=== PATIENT | female | born 1955 | race Caucasian/White ===

== ENCOUNTER 2019-09-28 02:02 | Inpatient (IN) | payer MEDICAID ==
[~2019-09-28] VITALS: Ht 162.6 cm; Wt 56.8 kg
[~2019-09-28 02:02] MED LIST: ASPI-1265 PO; ATOR80TA PO; CARV-50 PO; CITA20TA28 PO; CLOP75TA33 PO; FAMO-129 PO; HYDR-3965 PO; INSU100I8 SQ; INSU100V9 SQ; ISOS120T13 PO; LISI2.5T2 PO; NITR0.4T51 SL; NITR100C6 PO; ONDA4TAB12 PO; ONDA4TAB6 PO; PANT20TA3 PO; POLY17PO10 PO
[2019-09-28 03:06] LABS: BASOPHILS # (AUTO) 0.1 X10'3 (0-0.2); BASOPHILS % (AUTO) 0.6 % (0-1); EOSINOPHILS # (AUTO) 0.7 X10'3 (0-0.9); EOSINOPHILS % (AUTO) 6.1 % (0-6); HEMATOCRIT 38.1 % (35.0-45.0); HEMOGLOBIN 13.3 g/dl (12.0-16.0); LYMPHOCYTES # (AUTO) 3.4 X10'3 (1.1-4.8); LYMPHOCYTES % (AUTO) 31.5 % (21-51); MEAN CORPUSCULAR HEMOGLOBIN 32.2 PG (27.0-31.0); MEAN CORPUSCULAR HGB CONC 34.9 g/dL (33.0-36.5); MEAN CORPUSCULAR VOLUME 92.2 FL (78-98); MEAN PLATELET VOLUME 8.4 FL (7.4-10.4); MONOCYTES # (AUTO) 0.8 X10'3 (0-0.9); MONOCYTES % (AUTO) 7.7 % (2-12); NEUTROPHILS # (AUTO) 5.7 X10'3 (1.8-7.7); NEUTROPHILS % (AUTO) 54.1 % (42-75); PLATELET COUNT 204 X10'3 (140-440); RED BLOOD COUNT 4.14 X10'6 (4.20-5.60); RED CELL DISTRIBUTION WIDTH 13.4 % (11.5-14.5); WHITE BLOOD COUNT 10.6 X10'3 (4.5-11.0)
[2019-09-28 03:14] LABS: PARTIAL THROMBOPLASTIN TIME 24 SECONDS (22-32)
[2019-09-28 03:15] LABS: ALANINE AMINOTRANSFERASE 16 U/L (12-78); ALBUMIN 2.8 G/DL (3.4-5.0); ALBUMIN/GLOBULIN RATIO 1.1 (1.1-1.5); ALKALINE PHOSPHATASE 66 IU/L (46-116); ANION GAP 9 (8-16); ASPARTATE AMINO TRANSFERASE 13 U/L (10-37); BILIRUBIN,TOTAL 0.2 MG/DL (0.1-1.0); BLOOD UREA NITROGEN 41 MG/DL (7-18); BUN/CREATININE RATIO 31.5 (6.6-38.0); CALCIUM 8.4 MG/DL (8.5-10.1); CHLORIDE 108 MMOL/L (99-107); GLUCOSE 156 MG/DL (70-104); POTASSIUM 4.1 MMOL/L (3.5-5.1); SODIUM 142 MMOL/L (135-145); TOTAL CARBON DIOXIDE 24.6 MMOL/L (24-32); TOTAL PROTEIN 5.4 G/DL (6.4-8.2); eGFR 42 ML/MIN
[2019-09-28 03:23] LABS: MAGNESIUM 1.7 MG/DL (1.5-2.4); TROPONIN I < 0.04 NG/ML (0.0-0.05)
[2019-09-28] MEDS ORDERED: CLOP75TA15 PO (04:13)
[2019-09-28] MEDS ORDERED: ASPI81TA52 PO (04:13)
[2019-09-28] MEDS ORDERED: BUPR150T8 PO (04:13)
[2019-09-28] MEDS ORDERED: DOCU-148 PO (04:13)
[2019-09-28] MEDS ORDERED: CARV3.12 PO (04:13)
[2019-09-28] MEDS ORDERED: POLY119P2 PO (04:13)
[2019-09-28] MEDS ORDERED: ALB0.5UD IH (04:13)
[2019-09-28] MEDS ORDERED: LEVO500T2 PO (04:13)
[2019-09-28] MEDS ORDERED: ISOS30TA9 PO (04:13)
[2019-09-28] MEDS ORDERED: ESCI10TA PO (04:13)
[2019-09-28] MEDS ORDERED: FAMO-128 PO (04:13)
[2019-09-28] MEDS ORDERED: morphine 2 MG/ML inj. syringe IV ONE (04:25)
[2019-09-28] MEDS ORDERED: magnesium hydroxide 30ml (MOM) UD suspension PO PRN (04:30)
[2019-09-28] MEDS ORDERED: morphine 2 MG/ML inj. syringe IV PRN (04:30)
[2019-09-28] MEDS ORDERED: acetaminophen 325mg tablet PO PRN (04:30)
[2019-09-28] MEDS ORDERED: ondansetron/PF 4mg/2ml inj IV PRN (04:30)
[2019-09-28] MEDS ORDERED: mag hydrox/Alum hydrox/simeth 30ml oral suspension PO PRN (04:30)
[2019-09-28] MEDS ORDERED: glucagon, human recombinant 1mg kit SUBCUT PRN (04:35)
[2019-09-28] MEDS ORDERED: dextrose 50%-water 50ml dispensing syringe IV PRN ×2 (04:35)
[2019-09-28] MEDS ORDERED: nitroGLYCERIN 0.4mg SUBLingual tab SL PRN ×2 (04:35→09:55)
[2019-09-28] MEDS ORDERED: dextrose ORAL solution 15 GM/59 ML bottle PO PRN ×2 (04:35)
[2019-09-28] MEDS ORDERED: MESSAGE TO PHARMACY PO ONE (04:35)
[2019-09-28] MEDS ORDERED: insulin Lispro (HumaLOG) vial - multi-dose SQ SCH (04:35)
[2019-09-28] MEDS ORDERED: albuterol 2.5 MG/3 ML nebule NEB PRN (04:35)
[2019-09-28 04:49] LABS: HEMOGLOBIN A1C 9.7 % (4.5-6.2)
[2019-09-28 05:10] LABS: URINE AMPHETAMINE SCREEN POSITIVE (Neg); URINE BARBITUATE SCREEN NEGATIVE (Neg); URINE BENZODIAZEPINES SCREEN NEGATIVE (Neg); URINE CANNABINOID SCREEN NEGATIVE (Neg); URINE COCAINE SCREEN POSITIVE (Neg); URINE METHADONE SCREEN NEGATIVE (Neg); URINE OPIATE SCREEN POSITIVE (Neg); URINE PHENCYCLIDINE SCREEN NEGATIVE (Neg)
[2019-09-28 05:30] VITALS: BP 109/61
--- NOTE | 2019-09-28 05:30 | NUR ---
pt arrived to PCU unit from ER via wheelchair, pt is A&O x4, pt states she has 9/10 CP was given morphine down in the ER will assess pt to see if effective, pt is not in any respiratory distress at this time, will continue to monitor pt received report from Gail FLORES
[2019-09-28 06:00] VITALS: BP 104/62
--- NOTE | 2019-09-28 06:07 | NUR ---
Problems reprioritized. Patient report given, questions answered & plan of care reviewed with Rena FLORES.
--- NOTE | 2019-09-28 06:53 | NUR ---
Patient in room PCU 3012. I have received report from Graciela FLORES and had the opportunity to ask questions and assume patient care.
[2019-09-28] MEDS: polyethylene glycol 3350 17gm powd pack PO SCH (08:00)
[2019-09-28] MEDS ORDERED: carVEDilol 3.125mg tablet PO SCH (08:00)
[2019-09-28] MEDS: buPROPion SR 150mg tablet PO SCH (08:37)
[2019-09-28] MEDS: citalopram 20mg tablet PO SCH (08:37)
[2019-09-28] MEDS: famotidine 20mg tablet PO SCH ×2 (08:37→20:40)
[2019-09-28] MEDS: docusate sod 100mg capsule PO SCH (08:37)
[2019-09-28] MEDS: aspirin 81mg tab.chew PO SCH (08:37)
[2019-09-28] MEDS: heparin, porcine 5000 units/ml vial SQ SCH ×2 (08:38→20:40)
[2019-09-28] MEDS: isosorbide dinitrate 30mg tablet PO SCH (09:04)
--- NOTE | 2019-09-28 09:48 | NUR ---
PAGER ID: [phone] MESSAGE: [id number] Carmelina Devi c/o 10 chest pain c throbbing headache, lightheadedness, and blurring of vision. BP checked x3 & SBP consistently in 70s. Routine EKG done on onset of CP showed NSR. Giving 250cc bolus per protocol. Pls advise. Rena [id number]
[2019-09-28] MEDS ORDERED: aminophylline 250mg/10ml inj. IV PRN (09:55)
[2019-09-28] MEDS ORDERED: metoprolol tartrate 1mg/ml inj IV PRN (09:55)
[2019-09-28] MEDS ORDERED: regadenoson 0.4mg/5ml syringe IV ONE (09:55)
[2019-09-28] MEDS ORDERED: LORazepam 2 mg/ml vial IM ONE (10:00)
[2019-09-28] MEDS: K and/or MAG REPLACEMENT MC SCH ×2 (10:25→20:00)
[2019-09-28] MEDS ORDERED: magnesium 4gm in 100ml NS 100 ML IV PRN (10:25)
[2019-09-28] MEDS ORDERED: potassium Cl 20 mEq SR tablet PO PRN ×2 (10:25)
[2019-09-28] MEDS ORDERED: potassium CL 10mEq/100ml bag 100 ML IV PRN (10:25)
[2019-09-28] MEDS ORDERED: magnesium Cl slow-release 64mg tablet PO PRN (10:25)
[2019-09-28 11:00] VITALS: BP 68/34
--- NOTE | 2019-09-28 12:57 | NUR ---
DM Consult: A1C 9.7. Pt seen by RD for written/verbal DM ed w/ RD contact information provided. Pt reports forgets to check GLU and taking DM meds per Rx at home. RD encouraged routine Glu checks and taking DM meds per MD Rx. Pt also reports hx meats getting stuck in throat and has had prior esophageal dilation; currently NPO pending EKG today. RD recommended CLIENT PORTFOLIO MANAGER BSS prior to diet advancement. Addendum: 09/28/19 at [address] Amended: Links added.
--- NOTE | 2019-09-28 14:09 | NUR ---
PAGER ID: [phone] MESSAGE: [phone] Carmelina Devi scan won't be done til tomorrow. Per [facility], they are past the time range for dosing and pt. SBP is too low. Running 1L NS bolus. Rena [id number]
[2019-09-28 15:00] VITALS: BP 96/51
--- NOTE | 2019-09-28 16:14 | NUR ---
Paged ST re: need for eval. Pt. would like to eat diner prior to jennifer-scan tomorrow 09/28
--- NOTE | 2019-09-28 16:25 | NUR ---
PAGER ID: [phone] MESSAGE: [id number] Carmelina Devi Would like to eat some dinner prior to jennifer-scan tomorrow if possible. C/o of feeling shaky and nauseated. Blood sugar consistently in 80s.ST therapy paged, has not evaluated yet. Rena [id number]
--- NOTE | 2019-09-28 18:30 | NUR ---
Problems reprioritized. Patient report given, questions answered & plan of care reviewed with Eduin RN.
[2019-09-28 19:00] VITALS: BP 94/47
[2019-09-28] MEDS ORDERED: insulin glargine (Lantus) pen - multi-dose SQ SCH (21:00)
[2019-09-29] VITALS (12 sets, daily range): BP systolic 120–155; BP diastolic 56–76
[2019-09-29 05:53] LABS: BASOPHILS # (AUTO) 0.1 X10'3 (0-0.2); BASOPHILS % (AUTO) 1.2 % (0-1); EOSINOPHILS # (AUTO) 0.6 X10'3 (0-0.9); EOSINOPHILS % (AUTO) 8.5 % (0-6); HEMATOCRIT 39.9 % (35.0-45.0); HEMOGLOBIN 13.8 g/dl (12.0-16.0); LYMPHOCYTES # (AUTO) 2.7 X10'3 (1.1-4.8); LYMPHOCYTES % (AUTO) 40.2 % (21-51); MEAN CORPUSCULAR HGB CONC 34.6 g/dL (33.0-36.5); MEAN CORPUSCULAR VOLUME 92.6 FL (78-98); MEAN PLATELET VOLUME 8.7 FL (7.4-10.4); MONOCYTES # (AUTO) 0.4 X10'3 (0-0.9); MONOCYTES % (AUTO) 6.6 % (2-12); NEUTROPHILS # (AUTO) 2.9 X10'3 (1.8-7.7); NEUTROPHILS % (AUTO) 43.5 % (42-75); PLATELET COUNT 189 X10'3 (140-440); RED BLOOD COUNT 4.31 X10'6 (4.20-5.60); RED CELL DISTRIBUTION WIDTH 13.1 % (11.5-14.5); WHITE BLOOD COUNT 6.6 X10'3 (4.5-11.0)
--- NOTE | 2019-09-29 06:00 | NUR ---
Patient in room PCU 3012. I have received report from Eduin FLORES and had the opportunity to ask questions and assume patient care.
[2019-09-29 06:12] LABS: ALANINE AMINOTRANSFERASE 44 U/L (12-78); ALBUMIN 2.9 G/DL (3.4-5.0); ALKALINE PHOSPHATASE 91 IU/L (46-116); ANION GAP 6 (8-16); ASPARTATE AMINO TRANSFERASE 32 U/L (10-37); BILIRUBIN,TOTAL 0.3 MG/DL (0.1-1.0); BLOOD UREA NITROGEN 26 MG/DL (7-18); CALCIUM 8.4 MG/DL (8.5-10.1); CHLORIDE 111 MMOL/L (99-107); CHOL/HDL RATIO 3.2 (0.00-4.99); CHOLESTEROL 146 MG/DL (0-200); CREATININE 1.13 MG/DL (0.40-0.90); GLUCOSE 91 MG/DL (70-104); HDL CHOLESTEROL 46 MG/DL (35-60); LDL CHOLESTEROL 72 MG/DL (50-100); POTASSIUM 4.1 MMOL/L (3.5-5.1); SODIUM 144 MMOL/L (135-145); TOTAL CARBON DIOXIDE 27.2 MMOL/L (24-32); TOTAL PROTEIN 5.7 G/DL (6.4-8.2); TRIGLYCERIDES 135 MG/DL (20-135); eGFR 49 ML/MIN
--- NOTE | 2019-09-29 07:03 | NUR ---
Problems reprioritized. Patient report given, questions answered & plan of care reviewed with Rena FLORES
[2019-09-29] MEDS: aspirin 81mg tab.chew PO SCH (07:43)
[2019-09-29] MEDS: docusate sod 100mg capsule PO SCH (07:43)
[2019-09-29] MEDS: citalopram 20mg tablet PO SCH (07:44)
[2019-09-29] MEDS: buPROPion SR 150mg tablet PO SCH (07:44)
[2019-09-29] MEDS: famotidine 20mg tablet PO SCH (07:45)
[2019-09-29] MEDS: heparin, porcine 5000 units/ml vial SQ SCH (07:46)
[2019-09-29] MEDS: polyethylene glycol 3350 17gm powd pack PO SCH (08:00)
[2019-09-29] MEDS: K and/or MAG REPLACEMENT MC SCH (08:00)
--- NOTE | 2019-09-29 09:23 | NUR ---
DM consult: Pt already seen by TRAVIS for DM education, see below. DM Consult: A1C 9.7. Pt seen by TRAVIS for written/verbal DM ed w/ RD contact information provided. Pt reports forgets to check GLU and taking DM meds per Rx at home. RD encouraged routine Glu checks and taking DM meds per MD Rx. Pt also reports hx meats getting stuck in throat and has had prior esophageal dilation; currently NPO pending EKG today. TRAVIS recommended JACQUARD CARD LACER BSS prior to diet advancement. Addendum: 09/29/19 at [address] Amended: Links added.
[2019-09-29] MEDS ORDERED: pneumococcal 23-VAL P-sac vacc 25 mcg/0.5ml vial IMVAC ONE (10:00)
[2019-09-29] MEDS: isosorbide dinitrate 30mg tablet PO SCH (10:34)
--- NOTE | 2019-09-29 17:56 | NUR ---
Patient stable for discharge home today, all discharge instructions given to patient and questions answered. IV out and cannula intact. All home medications stored in pharmacy given to patient.
[2019-09-30] MEDS ORDERED: venlafaxine XR 75mg capsule (Q24H) PO SCH (08:00)
== END 2019-09-29 17:40 | disposition home or self-care (01) | DRG 198 ==
LOC: ER 02:02 → ED HOLD 04:28 → UNDOADMIN 04:45 → ED HOLD 04:45 → PCU 3S 05:30
PROVIDERS: ADMIT Internal Medicine; ATTEND Family Medicine
PROC: 4A02XM4 Measurement of Cardiac Total Activity, External Approach (ICD-10-PCS; principal; 2019-09-29)
PROC: 3E073KZ Introduction of Other Diagnostic Substance into Coronary Artery, Percutaneous Approach (ICD-10-PCS; 2019-09-29)
PROC: 3E0234Z Introduction of Serum, Toxoid and Vaccine into Muscle, Percutaneous Approach (ICD-10-PCS; 2019-09-29)
DX: R07.89 Other chest pain (principal); I25.10 Atherosclerotic heart disease of native coronary artery without angina pectoris; I11.0 Hypertensive heart disease with heart failure; I50.9 Heart failure, unspecified; E11.9 Type 2 diabetes mellitus without complications; F11.10 Opioid abuse, uncomplicated; F14.10 Cocaine abuse, uncomplicated; F15.10 Other stimulant abuse, uncomplicated; F17.200 Nicotine dependence, unspecified, uncomplicated; F32.9 Major depressive disorder, single episode, unspecified; F41.9 Anxiety disorder, unspecified; G89.4 Chronic pain syndrome; I25.2 Old myocardial infarction; Z82.0 Family history of epilepsy and other diseases of the nervous system; Z82.49 Family history of ischemic heart disease and other diseases of the circulatory system; Z82.5 Family history of asthma and other chronic lower respiratory diseases; Z83.3 Family history of diabetes mellitus; Z86.73 Personal history of transient ischemic attack (TIA), and cerebral infarction without residual deficits; Z88.0 Allergy status to penicillin; Z90.710 Acquired absence of both cervix and uterus; Z23 Encounter for immunization; Z88.5 Allergy status to narcotic agent; Z88.8 Allergy status to other drugs, medicaments and biological substances; Z79.899 Other long term (current) drug therapy; Z79.82 Long term (current) use of aspirin; Z79.4 Long term (current) use of insulin; Z71.51 Drug abuse counseling and surveillance of drug abuser
CPT/HCPCS: 36415; 78452; 80053; 80061; 80305; 82948; 83036; 83735; 83880; 84443; 84484; 85025; 85610; 85730; 87081; 90732; 93005; 93017; 93306; 94640; 94760; 96374; 99285; A9500; G0378; J1644; J1815; J2270; J2785

== ENCOUNTER 2021-03-27 11:32 | Emergency (ER) | payer MEDICAID ==
[~2021-03-27] VITALS: Ht 157.5 cm; Wt 45.9 kg
[~2021-03-27 11:32] MED LIST changes: +ALB0.5UD IH; -ATOR80TA PO; +BUPR150T8 PO; -CARV-50 PO; +CARV3.12 PO; -CITA20TA28 PO; +CLOP75TA15 PO; -CLOP75TA33 PO; +DOCU-148 PO; +ESCI10TA PO; +FAMO-128 PO; -FAMO-129 PO; -HYDR-3965 PO; -ISOS120T13 PO; +ISOS30TA9 PO; -LISI2.5T2 PO; -NITR100C6 PO; -ONDA4TAB6 PO; -PANT20TA3 PO; +POLY119P2 PO; -POLY17PO10 PO
[2021-03-27 11:49] VITALS: BP 106/69
== END 2021-03-27 15:09 | disposition home or self-care (01) ==
LOC: ER 11:32
DX: M79.605 Pain in left leg (principal); M79.604 Pain in right leg; I25.10 Atherosclerotic heart disease of native coronary artery without angina pectoris; I10 Essential (primary) hypertension; I25.2 Old myocardial infarction; E11.9 Type 2 diabetes mellitus without complications; G89.29 Other chronic pain; F41.9 Anxiety disorder, unspecified; F32.9 Major depressive disorder, single episode, unspecified; F15.90 Other stimulant use, unspecified, uncomplicated; Z86.73 Personal history of transient ischemic attack (TIA), and cerebral infarction without residual deficits; Z87.01 Personal history of pneumonia (recurrent); Z87.440 Personal history of urinary (tract) infections; Z90.49 Acquired absence of other specified parts of digestive tract; Z90.710 Acquired absence of both cervix and uterus; Z90.89 Acquired absence of other organs; Z98.890 Other specified postprocedural states; Z88.0 Allergy status to penicillin; Z88.6 Allergy status to analgesic agent; Z88.1 Allergy status to other antibiotic agents; Z88.5 Allergy status to narcotic agent; Z88.8 Allergy status to other drugs, medicaments and biological substances; Z79.82 Long term (current) use of aspirin; Z79.899 Other long term (current) drug therapy
CPT/HCPCS: 93926; 93971; 99285

== ENCOUNTER 2021-06-26 11:19 | Inpatient (IN) | payer MEDICAID ==
[2021-06-26] VITALS (12 sets, daily range): BP systolic 92–174; BP diastolic 56–106
[~2021-06-26] VITALS: Ht 154.9 cm; Wt 62.0 kg
[2021-06-26] MEDS ORDERED: normal saline 1000ML IV soln IVB ONE (11:30)
[2021-06-26] MEDS ORDERED: metoprolol tartrate 1mg/ml inj IV ONE (11:30)
[2021-06-26] MEDS ORDERED: ondansetron/PF 4mg/2ml inj IV ONE (11:30)
[2021-06-26] MEDS: morphine 4 MG/ML inj SYRINge IV PRN ×2 (11:57→12:43)
[2021-06-26 12:03] LABS: BASOPHILS # (AUTO) 0.1 X10'3 (0-0.2); BASOPHILS % (AUTO) 0.4 % (0-1); EOSINOPHILS % (AUTO) 0 % (0-6); HEMATOCRIT 42.1 % (35.0-45.0); HEMOGLOBIN 13.7 g/dl (12.0-16.0); LYMPHOCYTES # (AUTO) 0.9 X10'3 (1.1-4.8); LYMPHOCYTES % (AUTO) 5.5 % (21-51); MEAN CORPUSCULAR HEMOGLOBIN 26.6 PG (27.0-31.0); MEAN CORPUSCULAR HGB CONC 32.5 g/dL (33.0-36.5); MEAN CORPUSCULAR VOLUME 81.9 FL (78-98); MEAN PLATELET VOLUME 7.6 FL (7.4-10.4); MONOCYTES # (AUTO) 0.3 X10'3 (0-0.9); MONOCYTES % (AUTO) 1.8 % (2-12); NEUTROPHILS # (AUTO) 14.5 X10'3 (1.8-7.7); NEUTROPHILS % (AUTO) 92.3 % (42-75); PLATELET COUNT 370 X10'3 (140-440); RED BLOOD COUNT 5.14 X10'6 (4.20-5.60); RED CELL DISTRIBUTION WIDTH 15.7 % (11.5-14.5); WHITE BLOOD COUNT 15.8 X10'3 (4.5-11.0)
--- NOTE | 2021-06-26 12:20 | NUR ---
Pt was up to the commode. Urine clear yellow. Pt continues to c/o severe pain.
[2021-06-26 12:22] LABS: ALANINE AMINOTRANSFERASE 22 U/L (12-78); ALBUMIN 3.9 G/DL (3.4-5.0); ALBUMIN/GLOBULIN RATIO 0.9 (1.1-1.5); ALKALINE PHOSPHATASE 197 IU/L (46-116); ANION GAP 12 (8-16); ASPARTATE AMINO TRANSFERASE 21 U/L (10-37); BILIRUBIN,TOTAL 0.8 MG/DL (0.1-1.0); BLOOD UREA NITROGEN 14 MG/DL (7-18); BUN/CREATININE RATIO 16.7 (6.6-38.0); CALCIUM 9.1 MG/DL (8.5-10.1); CHLORIDE 99 MMOL/L (99-107); CREATININE 0.84 MG/DL (0.40-0.90); GLUCOSE 233 MG/DL (70-104); SODIUM 135 MMOL/L (135-145); TOTAL CARBON DIOXIDE 24.3 MMOL/L (24-32); TOTAL PROTEIN 8.1 G/DL (6.4-8.2); eGFR 68 ML/MIN
--- NOTE | 2021-06-26 12:30 | NUR ---
Pt is somulent but responds to speech immediately.
[2021-06-26] MEDS ORDERED: hydrALAZINE 20mg/ml inj. IV ONE (12:35)
[2021-06-26 12:38] LABS: CLARITY,URINE CLEAR (Clear); GLUCOSE, URINE 500 mg/dl (Neg); KETONES,URINE TRACE mg/dl (Neg); LEUKOCYTE ESTERASE ,URINE NEGATIVE (Neg); NITRITES, URINE NEGATIVE (Neg); OCCULT BLOOD,URINE NEGATIVE (Neg); PROTEIN,URINE NEGATIVE (Neg); UROBILINOGEN,URINE 0.2 E.U/dL (0.2-1.0)
[2021-06-26 12:44] LABS: POTASSIUM 4.1 MMOL/L (3.5-5.1)
[2021-06-26] MEDS ORDERED: VENL225T3 PO (12:44)
[2021-06-26] MEDS ORDERED: ATOR40TA72 PO (12:44)
[2021-06-26] MEDS ORDERED: GABA300C PO (12:44)
[2021-06-26] MEDS ORDERED: METF-438 PO (12:44)
[2021-06-26] MEDS ORDERED: RIZA10TA98 PO (12:44)
[2021-06-26] MEDS ORDERED: CARV3.123 PO (12:44)
[2021-06-26] MEDS ORDERED: PANT40TA54 PO (12:44)
[2021-06-26] MEDS ORDERED: LOSA100T57 PO (12:44)
[2021-06-26] MEDS ORDERED: BUPR300T86 PO (12:44)
[2021-06-26] MEDS ORDERED: DULA3PEN SQ (12:44)
[2021-06-26] MEDS ORDERED: LISI40TA13 PO (12:44)
[2021-06-26] MEDS ORDERED: FERR-106 PO (12:44)
[2021-06-26] MEDS ORDERED: SENN-263 PO (12:44)
[2021-06-26] MEDS ORDERED: MSC30T PO (12:44)
[2021-06-26] MEDS ORDERED: ESTR42.510 VG (12:44)
[2021-06-26] MEDS ORDERED: NITR4.9S4 IH (12:44)
[2021-06-26] MEDS ORDERED: DAPA10TA PO (12:44)
[2021-06-26] MEDS ORDERED: ALBU8.5H17 IH (12:44)
[2021-06-26] MEDS ORDERED: INSU100I39 SQ (12:44)
[2021-06-26] MEDS ORDERED: ARIP5TAB60 PO (12:44)
[2021-06-26] MEDS ORDERED: MIRT7.5T11 PO (12:44)
[2021-06-26] MEDS ORDERED: CLOP75TA34 PO (12:44)
[2021-06-26] MEDS ORDERED: METO-384 PO (12:44)
[2021-06-26] MEDS ORDERED: APIX5TAB3 PO (12:44)
[2021-06-26] MEDS ORDERED: METO10TA3 PO (12:44)
[2021-06-26] MEDS ORDERED: INSU100I31 SQ (12:44)
[2021-06-26] MEDS ORDERED: OXYC15TA PO (12:44)
[2021-06-26] MEDS ORDERED: RANO500T6 PO (12:44)
[2021-06-26] MEDS ORDERED: ISOS30TA84 PO (12:44)
[2021-06-26 12:52] LABS: UA COLLECTION TYPE VOIDED
[2021-06-26 12:53] LABS: COLOR,URINE STRAW (Yellow)
[2021-06-26] MEDS ORDERED: insulin Lispro (HumaLOG) vial - multi-dose SQ SCH ×2 (15:40→21:30)
[2021-06-26] MEDS ORDERED: potassium CL 10mEq/100ml bag 100 ML IV PRN (15:40)
[2021-06-26] MEDS ORDERED: SUMAtriptan 25 MG tablet PO PRN (15:40)
[2021-06-26] MEDS ORDERED: magnesium 4gm in 100ml NS 100 ML IV PRN (15:40)
[2021-06-26] MEDS ORDERED: nitroGLYCERIN 0.4mg SUBLingual tab SL PRN (15:40)
[2021-06-26] MEDS ORDERED: MESSAGE TO PHARMACY PO ONE (15:40)
[2021-06-26] MEDS ORDERED: dextrose 50%-water 50ml dispensing syringe IV PRN ×4 (15:40→21:30)
[2021-06-26] MEDS ORDERED: magnesium 2GM in 50ml NS 50 ML IV PRN (15:40)
[2021-06-26] MEDS ORDERED: magnesium Cl slow-release 64mg tablet PO PRN (15:40)
[2021-06-26] MEDS ORDERED: ondansetron/PF 4mg/2ml inj IV PRN ×2 (15:40→16:10)
[2021-06-26] MEDS ORDERED: potassium Cl 20 mEq SR tablet PO PRN ×2 (15:40)
[2021-06-26] MEDS ORDERED: morphine 2 MG/ML inj. syringe IV PRN ×2 (15:40→16:10)
[2021-06-26] MEDS ORDERED: glucagon, human recombinant 1mg kit SUBCUT PRN ×2 (15:40→21:30)
[2021-06-26] MEDS ORDERED: dextrose ORAL solution 15 GM/59 ML bottle PO PRN ×4 (15:40→21:30)
[2021-06-26] MEDS ORDERED: albuterol 2.5 MG/3 ML nebule NEB PRN (15:40)
[2021-06-26] MEDS ORDERED: magnesium hydroxide 30ml (MOM) UD suspension PO PRN (15:40)
[2021-06-26] MEDS ORDERED: acetaminophen 325mg tablet PO PRN ×2 (15:40)
[2021-06-26] MEDS ORDERED: diphenhydrAMINE 25mg capsule PO PRN (15:40)
[2021-06-26] MEDS ORDERED: mag hydrox/Alum hydrox/simeth 30ml oral suspension PO PRN (15:40)
[2021-06-26] MEDS ORDERED: acetaminophen 650mg rectal suppository RC PRN (15:40)
[2021-06-26] MEDS ORDERED: bisacodyl 10mg suppository rectal RC PRN (15:40)
[2021-06-26] MEDS ORDERED: ciprofloxacin lact 400MG/200ML 200 ML IV SCH (15:45)
[2021-06-26] MEDS ORDERED: metroNIDAZOLE-Flagyl 500mg/NS 100 ML IV SCH (16:00)
[2021-06-26 16:04] LABS: HEMOGLOBIN A1C 6.5 % (4.5-6.2)
[2021-06-26] MEDS ORDERED: enalaprilat dihydrate 2.5mg/2ml vial IV PRN (16:10)
[2021-06-26] MEDS ORDERED: morphine 4 MG/ML inj SYRINge IV PRN (16:10)
[2021-06-26] MEDS ORDERED: ringers solution, lacted 1,000 ML IV SCH (16:10)
[2021-06-26] MEDS ORDERED: hydrALAZINE 20mg/ml inj. IV PRN (16:10)
[2021-06-26] MEDS ORDERED: fentaNYL/PF 50MCG/1 ML 2ML syringe IV PRN ×2 (16:10)
[2021-06-26] MEDS: normal saline 1000ml 1,000 ML IV SCH (16:20)
[2021-06-26] MEDS ORDERED: BUPIVAcaine 0.5% inj/PF 30 ML ONE (16:48)
[2021-06-26] MEDS ORDERED: LIDOcaine 1% 30ml preserv. free vial ONE (16:48)
[2021-06-26] MEDS ORDERED: fentaNYL/PF 50MCG/1 ML 2ML syringe ONE (17:04)
[2021-06-26] MEDS ORDERED: midazolam 1 mg/ML 2ml injection ONE (17:04)
[2021-06-26] MEDS ORDERED: etomidate 2mg/ml inj. ONE (17:06)
[2021-06-26] MEDS ORDERED: glycopyrrolate 0.2mg/ml inj ONE (17:06)
[2021-06-26] MEDS ORDERED: rocuronium 10mg/ml inj IV ONE (17:06)
[2021-06-26] MEDS ORDERED: dexamethasone sod phosphate 4mg/ml inj. ONE (17:06)
[2021-06-26] MEDS ORDERED: neostigmine methylsulfate 1 MG/ML 10ml vial ONE (17:06)
[2021-06-26] MEDS ORDERED: ondansetron/PF 4mg/2ml inj ONE (17:06)
[2021-06-26] MEDS ORDERED: sevoflurane 250ml liquid IH ONE (17:20)
[2021-06-26] MEDS ORDERED: albumin (Human) 5% 250ml 250 ML IV ONE (17:44)
[2021-06-26] MEDS ORDERED: ceFOXitin 1000 MG inj ONE (17:47)
[2021-06-26] MEDS ORDERED: BUPIVAcaine 0.5% inj/PF 30 ml vial IJ ONE (17:53)
[2021-06-26] MEDS ORDERED: labetalol 20mg/4ml (5mg/ml) syringe IV ONE (17:58)
--- NOTE | 2021-06-26 18:50 | NUR ---
Received from OR via , accompanied by Anesthesiologist DR GUTIÉRREZ and report given by Anesthesiolgist. PT SLEEPING, WILL AROUSE SLIGHTLY TO VOICE, SKIN WARM AND PINK MOVING EXT X 4, PEDAL PULSES +3, 3 LAP SITES ON ABD CLOSED WITH GLUE, CD, RIGHT AC 20G WITH LR 100ML/HR, 22G RIGHT WRIST SL, SCDS, ACCUCHECK ON ADMIT 198, NO ORDERS FROM DR GUTIÉRREZ.
[2021-06-26] MEDS: morphine 2 MG/ML inj. syringe IV PRN ×2 (19:04→19:26)
[2021-06-26] MEDS ORDERED: HYDROcodone/acetaminophen 5mg/325mg tablet PO PRN (19:30)
--- NOTE | 2021-06-26 19:40 | NUR ---
Report called to receiving nurse. Transferred via BED Belongings . Special Issues communicated to receiving nurse. PT AWAKE AND ALERT, MOVING EXT X 4, SKIN WARM AND PINK, VSS, PAIN 2/10, PIV PATENT, SCD'S, 3 LAP SITES CD, GHADA ICE WATER, PT MEETS DISCHARGE CRITERIA.
[2021-06-26] MEDS ORDERED: apixaban 5mg tablet PO SCH (20:00)
[2021-06-26] MEDS: K and/or MAG REPLACEMENT MC SCH (20:00)
--- NOTE | 2021-06-26 20:00 | NUR ---
Received pt from OR very drowsy but arousal to stimuli. vital stable on monitor. Telemetry monitoring in progress. pt is on oxygen; saturating well
[2021-06-26] MEDS: HYDROcodone/acetaminophen 10/325mg tab PO PRN (20:33)
[2021-06-26] MEDS: docusate sod 100mg capsule PO SCH (20:34)
[2021-06-26] MEDS: acetaminophen 325mg tablet PO SCH (20:34)
[2021-06-26] MEDS: gabapentin 300mg capsule PO SCH (20:34)
[2021-06-26] MEDS: atorvastatin 20mg tablet PO SCH (20:35)
[2021-06-26] MEDS: carVEDilol 3.125mg tablet PO SCH (20:35)
[2021-06-26] MEDS: sennosides 8.6mg tablet PO SCH (20:35)
[2021-06-26] MEDS: venlafaxine XR 75mg capsule (Q24H) PO SCH (20:35)
[2021-06-26] MEDS: ranolazine 500mg SR tablet (Q12H) PO SCH (20:36)
[2021-06-26] MEDS: heparin, porcine 5000 units/ml vial SQ SCH (20:44)
[2021-06-26] MEDS: insulin glargine (Lantus) pen - multi-dose SQ SCH (21:00)
[2021-06-26] MEDS ORDERED: insulin glargine (Lantus) pen - multi-dose SQ SCH (21:00)
[2021-06-27] VITALS (11 sets, daily range): BP systolic 80–154; BP diastolic 42–62
[2021-06-27] MEDS: HYDROcodone/acetaminophen 10/325mg tab PO PRN ×2 (00:32→20:13)
[2021-06-27] MEDS: ketorolac trometh. 30mg/ml inj. IV SCH ×2 (00:33→09:16)
[2021-06-27] MEDS: normal saline 1000ml 1,000 ML IV SCH ×3 (00:35→21:55)
[2021-06-27] MEDS: acetaminophen 325mg tablet PO SCH ×3 (04:17→13:48)
--- NOTE | 2021-06-27 05:23 | NUR ---
pt has not voided, Lower abdominal distention noted and firm on palpation; bladder scanning done, Greater than 1400 ML of urine reported on bladder scanner. straight cath done 1300 ML of urine removed.
[2021-06-27 07:46] LABS: BASOPHILS % (AUTO) 0 % (0-1); EOSINOPHILS % (AUTO) 0 % (0-6); HEMATOCRIT 34.1 % (35.0-45.0); LYMPHOCYTES # (AUTO) 1.2 X10'3 (1.1-4.8); MEAN CORPUSCULAR HEMOGLOBIN 26.5 PG (27.0-31.0); MEAN CORPUSCULAR HGB CONC 32.1 g/dL (33.0-36.5); MEAN CORPUSCULAR VOLUME 82.5 FL (78-98); MEAN PLATELET VOLUME 7.9 FL (7.4-10.4); MONOCYTES % (AUTO) 8.5 % (2-12); NEUTROPHILS % (AUTO) 81.5 % (42-75); PLATELET COUNT 262 X10'3 (140-440); RED BLOOD COUNT 4.14 X10'6 (4.20-5.60); RED CELL DISTRIBUTION WIDTH 15.6 % (11.5-14.5); WHITE BLOOD COUNT 12.2 X10'3 (4.5-11.0)
[2021-06-27] MEDS: isosorbide mononitrate 30mg tab.SR.24H PO SCH (08:00)
[2021-06-27] MEDS ORDERED: mirtazapine 15mg tablet PO SCH (08:00)
[2021-06-27] MEDS: metoprolol succinate 25mg (24-HOUR) SR. Tablet PO SCH (08:00)
[2021-06-27] MEDS: lisinopril 20mg tablet PO SCH (08:00)
[2021-06-27] MEDS ORDERED: estrogens, conjug. vaginal cream 45gm tube VG SCH (08:00)
[2021-06-27] MEDS: K and/or MAG REPLACEMENT MC SCH ×2 (08:00→20:00)
[2021-06-27 08:39] LABS: ALANINE AMINOTRANSFERASE 26 U/L (12-78); ANION GAP 6 (8-16); ASPARTATE AMINO TRANSFERASE 18 U/L (10-37); BILIRUBIN,TOTAL 0.4 MG/DL (0.1-1.0); BLOOD UREA NITROGEN 21 MG/DL (7-18); BUN/CREATININE RATIO 21.6 (6.6-38.0); CALCIUM 8.2 MG/DL (8.5-10.1); CHLORIDE 108 MMOL/L (99-107); CHOL/HDL RATIO 2.2 (0.00-4.99); CHOLESTEROL 166 MG/DL (0-200); CREATININE 0.97 MG/DL (0.40-0.90); GLUCOSE 154 MG/DL (70-104); HDL CHOLESTEROL 75 MG/DL (35-60); LDL CHOLESTEROL 79 MG/DL (50-100); PHOSPHORUS 3.5 MG/DL (2.3-4.5); POTASSIUM 4.6 MMOL/L (3.5-5.1); SODIUM 137 MMOL/L (135-145); TOTAL CARBON DIOXIDE 22.6 MMOL/L (24-32); TRIGLYCERIDES 55 MG/DL (20-135); eGFR 58 ML/MIN
[2021-06-27 08:55] LABS: ALKALINE PHOSPHATASE 132 IU/L (46-116); MAGNESIUM 2.4 MG/DL (1.5-2.4)
[2021-06-27] MEDS: aripiprazole 5mg tablet PO SCH (09:11)
[2021-06-27] MEDS: docusate sod 100mg capsule PO SCH ×2 (09:11→20:12)
[2021-06-27] MEDS: sennosides 8.6mg tablet PO SCH ×2 (09:11→20:11)
[2021-06-27] MEDS: venlafaxine XR 75mg capsule (Q24H) PO SCH ×2 (09:12→20:12)
[2021-06-27] MEDS: ferrous sulfate 325mg tablet PO SCH (09:12)
[2021-06-27] MEDS: ranolazine 500mg SR tablet (Q12H) PO SCH ×2 (09:12→20:11)
[2021-06-27] MEDS: carVEDilol 3.125mg tablet PO SCH ×2 (09:12→20:12)
[2021-06-27] MEDS: apixaban 5mg tablet PO SCH ×2 (09:12→20:12)
[2021-06-27] MEDS: heparin, porcine 5000 units/ml vial SQ SCH (09:13)
[2021-06-27] MEDS: gabapentin 300mg capsule PO SCH ×3 (09:13→20:12)
[2021-06-27] MEDS: buPROPion SR 150mg tablet PO SCH ×2 (09:15→20:12)
[2021-06-27] MEDS: pantoprazole 40mg Tablet.DR PO SCH (09:15)
--- NOTE | 2021-06-27 09:53 | NUR ---
Low BMI: Pt admit dx acute appendicitis s/p appendectomy per EMR. Pt w/ hx of DM, A1c 6.5 though appropriate for age according to ADA guidelines. Currently on clear liquid diet and pending PO intake. Pt w/ unscaled wt 41 kg and BMI 17.1, w/ scaled wt hx 56.September per EMR. Current documented wt likely inaccurate. Will continue to follow. Addendum: 06/27/21 at [address] Amended: Links added. Addendum: 06/27/21 at [address] I have reviewed and agree with note by Cue WorkerСветлана Ramos RD
[2021-06-27] MEDS ORDERED: DEXTROSE 15 GM of carb/4 tabs (each vial/BOTTLE has 4 tablets) PO PRN ×2 (16:20)
--- NOTE | 2021-06-27 17:45 | NUR ---
Miss Devi has been assessed as indicated. She has been pleasant. She rests frequently but she arouses easily. She has tolerated her clear liquid diet well. Incisions are CDI. Her abdomen is not distended bowel sounds are hypoactive. She has not voided. she has been bladder scanned for 400 and several hours later 491. She has no urge to void. She was escorted to the rest room with a steady gait she sat on the toilet and did not pass any urine. Blood pressure is low at 86/52. she is asymptomatic. The surgeon was notified with no new orders received. Her HH is stable. She has had no PRN medications. She will continue to be monitored
--- NOTE | 2021-06-27 18:15 | NUR ---
Problems reprioritized. Patient report given, questions answered & plan of care reviewed with ZAFAR.
[2021-06-27] MEDS: mirtazapine 15mg tablet PO SCH (20:11)
[2021-06-27] MEDS: atorvastatin 20mg tablet PO SCH (20:11)
--- NOTE | 2021-06-27 20:28 | NUR ---
Dr Hurtado, Pt Aldimitrios, Hawa in room 3026G has not been voided. I just scanned her and noted 466 ml of urine. She is on IV fluid and drinking well. Spoke to Dr Hurtado and order given.
--- NOTE | 2021-06-27 21:45 | NUR ---
Straight cath done and 700 ml of urine obtained.
[2021-06-27] MEDS: insulin glargine (Lantus) pen - multi-dose SQ SCH (22:19)
[2021-06-28] VITALS (7 sets, daily range): BP systolic 79–100; BP diastolic 42–61
--- NOTE | 2021-06-28 01:23 | NUR ---
Pt Hawa Devi is still on clear liquid post appendectomy on the 17, Dr Hurtado was asked if we can restart her diet
[2021-06-28] MEDS: acetaminophen 325mg tablet PO SCH ×4 (02:57→20:00)
--- NOTE | 2021-06-28 03:00 | NUR ---
Bladder scan done, no urine reported on scanner.
[2021-06-28] MEDS: ketorolac trometh. 30mg/ml inj. IV SCH ×4 (03:03→16:00)
[2021-06-28 06:48] LABS: BASOPHILS % (AUTO) 0.4 % (0-1); EOSINOPHILS # (AUTO) 0.2 X10'3 (0-0.9); EOSINOPHILS % (AUTO) 2.5 % (0-6); HEMATOCRIT 27.2 % (35.0-45.0); HEMOGLOBIN 8.9 g/dl (12.0-16.0); LYMPHOCYTES # (AUTO) 2.6 X10'3 (1.1-4.8); LYMPHOCYTES % (AUTO) 32.4 % (21-51); MEAN CORPUSCULAR HEMOGLOBIN 27.1 PG (27.0-31.0); MEAN CORPUSCULAR HGB CONC 32.6 g/dL (33.0-36.5); MEAN CORPUSCULAR VOLUME 83.1 FL (78-98); MEAN PLATELET VOLUME 7.6 FL (7.4-10.4); MONOCYTES # (AUTO) 0.7 X10'3 (0-0.9); NEUTROPHILS # (AUTO) 4.5 X10'3 (1.8-7.7); NEUTROPHILS % (AUTO) 55.7 % (42-75); PLATELET COUNT 191 X10'3 (140-440); RED BLOOD COUNT 3.28 X10'6 (4.20-5.60); RED CELL DISTRIBUTION WIDTH 15.5 % (11.5-14.5); WHITE BLOOD COUNT 8.1 X10'3 (4.5-11.0)
[2021-06-28] MEDS: normal saline 1000ml 1,000 ML IV SCH ×2 (07:40→17:40)
[2021-06-28 07:47] LABS: ALANINE AMINOTRANSFERASE 20 U/L (12-78); ALBUMIN 2.6 G/DL (3.4-5.0); ALBUMIN/GLOBULIN RATIO 1.2 (1.1-1.5); ALKALINE PHOSPHATASE 98 IU/L (46-116); ANION GAP 8 (8-16); ASPARTATE AMINO TRANSFERASE 17 U/L (10-37); BILIRUBIN,TOTAL 0.2 MG/DL (0.1-1.0); BLOOD UREA NITROGEN 24 MG/DL (7-18); BUN/CREATININE RATIO 22.6 (6.6-38.0); CALCIUM 7.2 MG/DL (8.5-10.1); CHLORIDE 106 MMOL/L (99-107); CREATININE 1.06 MG/DL (0.40-0.90); GLUCOSE 60 MG/DL (70-104); MAGNESIUM 2.2 MG/DL (1.5-2.4); PHOSPHORUS 1.9 MG/DL (2.3-4.5); POTASSIUM 4.2 MMOL/L (3.5-5.1); SODIUM 139 MMOL/L (135-145); TOTAL CARBON DIOXIDE 24.7 MMOL/L (24-32); TOTAL PROTEIN 4.8 G/DL (6.4-8.2); eGFR 52 ML/MIN
[2021-06-28] MEDS: metoprolol succinate 25mg (24-HOUR) SR. Tablet PO SCH (08:00)
[2021-06-28] MEDS: lisinopril 20mg tablet PO SCH (08:00)
[2021-06-28] MEDS: K and/or MAG REPLACEMENT MC SCH ×2 (08:00→20:08)
[2021-06-28] MEDS: isosorbide mononitrate 30mg tab.SR.24H PO SCH (08:12)
[2021-06-28] MEDS: venlafaxine XR 75mg capsule (Q24H) PO SCH ×2 (08:14→20:03)
[2021-06-28] MEDS: aripiprazole 5mg tablet PO SCH (08:14)
[2021-06-28] MEDS: ranolazine 500mg SR tablet (Q12H) PO SCH ×2 (08:15→20:03)
[2021-06-28] MEDS: buPROPion SR 150mg tablet PO SCH ×2 (08:15→20:05)
[2021-06-28] MEDS: sennosides 8.6mg tablet PO SCH ×2 (08:15→20:03)
[2021-06-28] MEDS: pantoprazole 40mg Tablet.DR PO SCH (08:16)
[2021-06-28] MEDS: apixaban 5mg tablet PO SCH ×2 (08:16→20:05)
[2021-06-28] MEDS: ferrous sulfate 325mg tablet PO SCH (08:16)
[2021-06-28] MEDS: gabapentin 300mg capsule PO SCH ×2 (08:16→20:05)
[2021-06-28] MEDS: docusate sod 100mg capsule PO SCH ×2 (08:16→20:04)
[2021-06-28] MEDS: mirtazapine 15mg tablet PO SCH (21:33)
[2021-06-28] MEDS: atorvastatin 20mg tablet PO SCH (21:33)
[2021-06-29] MEDS: ketorolac trometh. 30mg/ml inj. IV SCH ×2 (00:26→08:05)
[2021-06-29 02:00] VITALS: BP 120/73
[2021-06-29] MEDS: acetaminophen 325mg tablet PO SCH ×2 (03:43→07:54)
[2021-06-29] MEDS: normal saline 1000ml 1,000 ML IV SCH (03:44)
[2021-06-29 06:00] VITALS: BP 128/78
--- NOTE | 2021-06-29 06:54 | NUR ---
badder scan residual over thatn 450 during shift stright cath twice during shift tolerated well. Patient in bed diaphoretic shaking Bs taking 58. patient sttaing the she feel weak coughing at night hypoglycemia protocol administer. Bs 98 patient in bed awake and alert no confusion no signs of hypoglycemia noted.
[2021-06-29 06:58] LABS: BASOPHILS # (AUTO) 0.1 X10'3 (0-0.2); BASOPHILS % (AUTO) 0.7 % (0-1); EOSINOPHILS # (AUTO) 0.4 X10'3 (0-0.9); EOSINOPHILS % (AUTO) 4.2 % (0-6); HEMATOCRIT 31.3 % (35.0-45.0); HEMOGLOBIN 10.1 g/dl (12.0-16.0); LYMPHOCYTES # (AUTO) 2.2 X10'3 (1.1-4.8); LYMPHOCYTES % (AUTO) 23.2 % (21-51); MEAN CORPUSCULAR HGB CONC 32.2 g/dL (33.0-36.5); MEAN CORPUSCULAR VOLUME 83.7 FL (78-98); MEAN PLATELET VOLUME 8.6 FL (7.4-10.4); MONOCYTES # (AUTO) 0.9 X10'3 (0-0.9); NEUTROPHILS # (AUTO) 6.1 X10'3 (1.8-7.7); NEUTROPHILS % (AUTO) 62.9 % (42-75); PLATELET COUNT 226 X10'3 (140-440); RED BLOOD COUNT 3.73 X10'6 (4.20-5.60); RED CELL DISTRIBUTION WIDTH 16.2 % (11.5-14.5); WHITE BLOOD COUNT 9.7 X10'3 (4.5-11.0)
[2021-06-29 07:02] LABS: ALANINE AMINOTRANSFERASE 20 U/L (12-78); ALBUMIN 2.7 G/DL (3.4-5.0); ALBUMIN/GLOBULIN RATIO 1.1 (1.1-1.5); ALKALINE PHOSPHATASE 103 IU/L (46-116); ANION GAP 10 (8-16); ASPARTATE AMINO TRANSFERASE 21 U/L (10-37); BILIRUBIN,TOTAL 0.3 MG/DL (0.1-1.0); BLOOD UREA NITROGEN 19 MG/DL (7-18); BUN/CREATININE RATIO 20.9 (6.6-38.0); CALCIUM 7.9 MG/DL (8.5-10.1); CHLORIDE 112 MMOL/L (99-107); CREATININE 0.91 MG/DL (0.40-0.90); GLUCOSE 59 MG/DL (70-104); MAGNESIUM 2.1 MG/DL (1.5-2.4); PHOSPHORUS 1.7 MG/DL (2.3-4.5); POTASSIUM 4.4 MMOL/L (3.5-5.1); SODIUM 143 MMOL/L (135-145); TOTAL CARBON DIOXIDE 20.8 MMOL/L (24-32); TOTAL PROTEIN 5.1 G/DL (6.4-8.2); eGFR 62 ML/MIN
[2021-06-29] MEDS: aripiprazole 5mg tablet PO SCH (07:53)
[2021-06-29] MEDS: gabapentin 300mg capsule PO SCH (07:54)
[2021-06-29] MEDS: pantoprazole 40mg Tablet.DR PO SCH (07:54)
[2021-06-29] MEDS: metoprolol succinate 25mg (24-HOUR) SR. Tablet PO SCH (07:54)
[2021-06-29] MEDS: isosorbide mononitrate 30mg tab.SR.24H PO SCH (07:54)
[2021-06-29] MEDS: sennosides 8.6mg tablet PO SCH (07:56)
[2021-06-29] MEDS: ranolazine 500mg SR tablet (Q12H) PO SCH (07:57)
[2021-06-29] MEDS: buPROPion SR 150mg tablet PO SCH (07:57)
[2021-06-29] MEDS: apixaban 5mg tablet PO SCH (07:57)
[2021-06-29] MEDS: ferrous sulfate 325mg tablet PO SCH (07:57)
[2021-06-29] MEDS: K and/or MAG REPLACEMENT MC SCH (08:00)
[2021-06-29 08:02] VITALS: BP_SYST 128
[2021-06-29] MEDS: lisinopril 20mg tablet PO SCH (08:02)
[2021-06-29] MEDS: docusate sod 100mg capsule PO SCH (08:05)
[2021-06-29] MEDS: venlafaxine XR 75mg capsule (Q24H) PO SCH (08:05)
--- NOTE | 2021-06-29 15:15 | NUR ---
Patient was discharge alert and orient, discharge instructions was discussed.
== END 2021-06-29 15:15 | disposition home or self-care (01) | DRG 224 ==
LOC: ER 11:20 → ED HOLD 15:45 → PACU 18:12 → PCU 3S 19:51
PROVIDERS: ADMIT Family Medicine; ATTEND Family Medicine
PROC: 0DN84ZZ Release Small Intestine, Percutaneous Endoscopic Approach (ICD-10-PCS; 2021-06-26)
PROC: 0DNU4ZZ Release Omentum, Percutaneous Endoscopic Approach (ICD-10-PCS; 2021-06-26)
PROC: 0DNW4ZZ Release Peritoneum, Percutaneous Endoscopic Approach (ICD-10-PCS; 2021-06-26)
PROC: 8E0W4CZ Robotic Assisted Procedure of Trunk Region, Percutaneous Endoscopic Approach (ICD-10-PCS; 2021-06-26)
PROC: 0DTJ4ZZ Resection of Appendix, Percutaneous Endoscopic Approach (ICD-10-PCS; principal; 2021-06-26 17:20)
DX: K35.30 Acute appendicitis with localized peritonitis, without perforation or gangrene (principal); I13.0 Hypertensive heart and chronic kidney disease with heart failure and stage 1 through stage 4 chronic kidney disease, or unspecified chronic kidney disease; E11.22 Type 2 diabetes mellitus with diabetic chronic kidney disease; E11.51 Type 2 diabetes mellitus with diabetic peripheral angiopathy without gangrene; I50.9 Heart failure, unspecified; Z66 Do not resuscitate; Z20.822 Contact with and (suspected) exposure to COVID-19; E11.65 Type 2 diabetes mellitus with hyperglycemia; E78.5 Hyperlipidemia, unspecified; F15.20 Other stimulant dependence, uncomplicated; G89.4 Chronic pain syndrome; I25.10 Atherosclerotic heart disease of native coronary artery without angina pectoris; I48.91 Unspecified atrial fibrillation; J44.9 Chronic obstructive pulmonary disease, unspecified; F32.A Depression, unspecified; F41.9 Anxiety disorder, unspecified; K21.9 Gastro-esophageal reflux disease without esophagitis; M54.9 Dorsalgia, unspecified; N18.9 Chronic kidney disease, unspecified; K66.0 Peritoneal adhesions (postprocedural) (postinfection); Z79.01 Long term (current) use of anticoagulants; Z79.02 Long term (current) use of antithrombotics/antiplatelets; Z79.82 Long term (current) use of aspirin; Z79.899 Other long term (current) drug therapy; Z82.0 Family history of epilepsy and other diseases of the nervous system; Z82.49 Family history of ischemic heart disease and other diseases of the circulatory system; I25.2 Old myocardial infarction; Z82.5 Family history of asthma and other chronic lower respiratory diseases; Z83.3 Family history of diabetes mellitus; Z86.73 Personal history of transient ischemic attack (TIA), and cerebral infarction without residual deficits; Z87.891 Personal history of nicotine dependence; Z90.710 Acquired absence of both cervix and uterus; Z91.19 Patient's noncompliance with other medical treatment and regimen; Z95.1 Presence of aortocoronary bypass graft; Z88.0 Allergy status to penicillin; Z88.2 Allergy status to sulfonamides; Z88.5 Allergy status to narcotic agent; Z88.8 Allergy status to other drugs, medicaments and biological substances; Z90.49 Acquired absence of other specified parts of digestive tract
CPT/HCPCS: 36415; 71045; 80053; 80061; 81003; 82948; 83036; 83605; 83735; 84100; 85025; 85610; 86885; 86900; 86901; 87040; 87081; 87635; 92508; 92616; 93005; 99285; A4215; A4618; C9803; G0378; J0360; J0694; J1100; J1644; J1815; J1885; J2250; J2270; J2405; J2710; J3010; J3490; J7030; P9045; S0020

== ENCOUNTER → 2023-07-20 | Day surgery (SDC) | payer MEDICARE, MEDICAID ==
[~2023-07-20] MED LIST changes: -ALB0.5UD IH; +ALBU8.5H17 IH; +APIX5TAB3 PO; +ARIP5TAB31 PO; +ATOR40TA72 PO; +BUPR-564 PO; -BUPR150T8 PO; -CARV3.12 PO; -CLOP75TA15 PO; +CLOP75TA34 PO; +DAPA10TA PO; -DOCU-148 PO; +DULA3PEN SQ; -ESCI10TA PO; +ESTR42.510 VG; -FAMO-128 PO; +FERR-106 PO; +GABA300C PO; +INSU100I31 SQ; +INSU100I39 SQ; -INSU100I8 SQ; -INSU100V9 SQ; +ISOS30TA84 PO; -ISOS30TA9 PO; +LISI40TA13 PO; +METF-438 PO; +METO-384 PO; +MIRT7.5T11 PO; +MSC30T PO; -NITR0.4T51 SL; +NITR4.9S4 IH; -ONDA4TAB12 PO; +OXYC15TA PO; +PANT40TA54 PO; -POLY119P2 PO; +RANO500T6 PO; +RIZA10TA98 PO; +SENN-263 PO; +VENL225T3 PO
== END | disposition home or self-care (01) ==
LOC: SSTAY O 09:19
PROVIDERS: ATTEND Nurse Practitioner Family
DX: T88.8XXA Other specified complications of surgical and medical care, not elsewhere classified, initial encounter (principal); I13.0 Hypertensive heart and chronic kidney disease with heart failure and stage 1 through stage 4 chronic kidney disease, or unspecified chronic kidney disease; E11.22 Type 2 diabetes mellitus with diabetic chronic kidney disease; N18.30 Chronic kidney disease, stage 3 unspecified; I50.9 Heart failure, unspecified; I25.10 Atherosclerotic heart disease of native coronary artery without angina pectoris; E78.5 Hyperlipidemia, unspecified; I25.2 Old myocardial infarction; Z87.891 Personal history of nicotine dependence; Z79.4 Long term (current) use of insulin; Z79.82 Long term (current) use of aspirin; Z79.891 Long term (current) use of opiate analgesic; Z79.899 Other long term (current) drug therapy; Z90.49 Acquired absence of other specified parts of digestive tract; Z90.89 Acquired absence of other organs; Z95.1 Presence of aortocoronary bypass graft; Z98.61 Coronary angioplasty status; Z88.1 Allergy status to other antibiotic agents; Z88.2 Allergy status to sulfonamides; Z88.5 Allergy status to narcotic agent; Z88.6 Allergy status to analgesic agent; Z88.8 Allergy status to other drugs, medicaments and biological substances; X58.XXXA Exposure to other specified factors, initial encounter; Y93.89 Activity, other specified; Y92.89 Other specified places as the place of occurrence of the external cause; Y99.8 Other external cause status
CPT/HCPCS: 36569; 36573; 76942